=== PATIENT | female | born 1975 | race Caucasian/White ===

== ENCOUNTER 2018-03-08 05:20 | Day surgery (SDC) | payer BC ==
[~2018-03-08] VITALS: Ht 160 cm; Wt 59.0 kg
[~2018-03-08 05:20] MED LIST: Motrin PO; Percocet 5/325,Endoc PO
[2018-03-08 05:56] VITALS: BP 120/70
[2018-03-08 09:16] VITALS: BP 105/52
[2018-03-08 09:50] VITALS: BP 118/64
== END 2018-03-08 10:00 | disposition home or self-care (01) ==
LOC: SDC 05:20
PROC: 0UDB8ZX Extraction of Endometrium, Via Natural or Artificial Opening Endoscopic, Diagnostic (ICD-10-PCS; principal; 2018-03-08)
PROC: 0UB98ZX Excision of Uterus, Via Natural or Artificial Opening Endoscopic, Diagnostic (ICD-10-PCS; principal; 2018-03-08)
DX: N84.0 Polyp of corpus uteri (principal); N92.1 Excessive and frequent menstruation with irregular cycle; Z88.2 Allergy status to sulfonamides
CPT/HCPCS: 88305; J0131; J0330; J1100; J1885; J2250; J2405; J3010; Q0175